=== PATIENT | female | born 1970 | race Caucasian/White ===

== ENCOUNTER 2022-01-23 09:57 | Day surgery (SDC) | payer BC ==
[2022-01-19 12:55] LABS: Absolute Lymphocytes (CBC) 2.6 K/uL (0.7-4.9); Hematocrit 37.2 % (36.0-45.0); Lymphocytes % 36.8 % (15.3-44.8); RBC Red Blood Cell Count 3.97 M/uL (3.86-4.86)
[2022-01-19 13:05] LABS: Potassium 3.4 mmol/L (3.5-5.1)
[2022-01-23] MEDS ORDERED: CEFAZOLIN SODIUM 1 GM/VIAL ONE (10:31)
[2022-01-23] MEDS ORDERED: NA CHLORIDE 0.9% 50 ML ONE (10:31)
[2022-01-23] MEDS ORDERED: Ringers Lactate 1,000 ML IV ONE (10:31)
[2022-01-23] MEDS ORDERED: MIDAZOLAM HCL 2 MG/2 ML INJ ONE ×3 (10:46→12:17)
[2022-01-23] MEDS ORDERED: FENTANYL CITR 100 MCG/2 ML ONE (10:46)
[2022-01-23] MEDS ORDERED: dexAMETHasone 10 MG/ML VIAL ONE (10:47)
[2022-01-23] MEDS ORDERED: BUPIVACAINE 0.25% PF 10 ML VIAL ONE (10:47)
[2022-01-23] MEDS ORDERED: BUPIVACAINE 0.5% PF 10 ML VIAL ONE ×2 (10:48→10:58)
[2022-01-23] MEDS ORDERED: ACETAMINOPHEN 500 MG TAB ONE (10:58)
[2022-01-23] MEDS ORDERED: CELECOXIB 100 MG CAPSULE ONE (10:58)
[2022-01-23] MEDS ORDERED: propofoL 200 MG/20 ML VIAL IV ONE (12:17)
[2022-01-23] MEDS ORDERED: LIDOCAINE 2% MPF 5 ML VIAL ONE (12:17)
[2022-01-23] MEDS ORDERED: NS 0.9% VIAL 10 ML ONE (13:12)
[2022-01-23] MEDS ORDERED: MORPHINE 10 MG/ML VIAL ONE (13:12)
[2022-01-23] MEDS: HYDROMORPHONE HCL 2 MG/ML inj ONE ×4 (14:23→14:41)
[2022-01-23] MEDS ORDERED: KETOROLAC 30 MG/ML INJ ONE (14:38)
[2022-01-23] MEDS ORDERED: HYDROMORPHONE HCL 1 MG/ML INJ ONE (14:53)
--- NOTE | 2022-01-23 15:15 | OP ---
Date of Procedure: 01/23/2022 Surgeon: Ha Erickson MD Preoperative Diagnosis: Left knee pain with instability as well as MRI demonstrated medial meniscal tear and ACL disruption. Postoperative Diagnoses: 1.Medial meniscal tear. 2.ACL disruption. Procedures: 1.Examination under anesthesia. 2.Medial meniscal debridement. 3.ACL reconstruction using Achilles tendon allograft. Estimated Blood Loss: 20 cc. Complications: There were no complications. Pathology Specimen: No pathology specimen sent. Indication For Operation: Ms. Griffin is a 51-year-old female, who arrived to see me in the office. She arrived with an MRI, which demonstrated an ACL tear as well as medial meniscal tear. 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 She does not have any d egenerative changes of her knee and is experiencing fairly frequent episodes of instability. She did not do well with physical therapy and at this time risks, benefits, and alternatives to different me thods of treating this have been discussed with her and we will proceed with the procedure. All risk s associated with that have been discussed and all of her questions have been answered. Description Of Procedure: The patient was taken to the operating room and placed in the supine posit ion. General anesthesia was obtained by staff, who previously had a block done in holding. A well-p added tourniquet was placed on superior left leg. Knee was brought through the range of motion. She has an obvious pivot shift with obvious instability. Left lower extremity was then prepped and drap ed in usual sterile fashion for this procedure. A standard superior medial arthroscopy portal was th en placed with aspiration of approximately 30 cc of rather normal-appearing synovial fluid. This was followed by placement of inferolateral arthroscopy portal. The knee was then sequentially examined including the suprapatellar pouch, the medial and lateral gutters, medial and lateral compartments as well as notch and patellofemoral joint. Pertinent findings included a tear of the medial meniscus. A standard medial arthroscopy portal was then performed and a combination of hand instruments and sh avers were then used to debride back this medial meniscal tearing to a firm, well contoured base. So me of the fat pad was removed in preparation for the ACL. There was some bleeding. Therefore, the t ourniquet was raised. The ACL was examined and was found to be incompetent and with some fibrous per sisting. These were debrided leaving a small stump of ACL to serve as a footprint. Fat pad was then removed to allow for good visualization and all soft tissue was removed in the region of the ACL fem oral footprint and intercondylar notch. Care being taken to protect the PCL. A very small notchplas ty was performed. After this, the arthroscopic aimer was used and an incision was established for pl acement of the guide pin. Guide pin was then placed in appropriate position and the tibia was then r eamed to a size, which matches the ACL graft. Following this, a guide was used and pin wa s placed with some significant degree of flexion exiting the femur in the appropriate position. Foll owing this, this was then reamed up to a size 30 depth with a size 9 reamer. After this, the graft w as then passed without difficulty into the femoral canal and held firmly in place at both ends. The medial portal was then used for placement of a size 8 x 30 screw. After this had been tapped, has a good bite, vigorous traction on the graft as well as moving the knee through range of motion does not demonstrate any change in isometry and appears to be very well fixed. This was followed by placemen t of the tibial screw, which also appears to have a very good bite. The prominent graft material was then removed at the surface of the bone and the skin was then closed using 2-[address] shaw on the arthroscopy portals and this incision. Knee was brought through a full range of motion and Syeda is a very solid. The knee was then placed in a very well-padded sterile dressing as well as a knee immobilizer and the patient was taken to the recovery room in good condition. There were no complica tions. SE/MODL Voice ID: [id number] Report ID: [id number]
[2022-01-23] MEDS ORDERED: HYDROCODONE/APAP 7.5/325 MG TAB ONE (15:41)
[2022-01-23 17:08] VITALS: BP 111/66; TEMP 97; O2SAT 94
== END 2022-01-23 16:07 | disposition home or self-care (01) ==
LOC: OR 09:57
PROVIDERS: ATTEND Orthopaedic Surgery
PROC: 0SBD4ZZ Excision of Left Knee Joint, Percutaneous Endoscopic Approach (ICD-10-PCS; 2022-01-23)
PROC: 0MRP4KZ Replacement of Left Knee Bursa and Ligament with Nonautologous Tissue Substitute, Percutaneous Endoscopic Approach (ICD-10-PCS; principal; 2022-01-23 12:00)
DX: S83.242A Other tear of medial meniscus, current injury, left knee, initial encounter (principal); S83.105A Unspecified dislocation of left knee, initial encounter
CPT/HCPCS: 85025; 80048; 36415; 29888; 29881; J2704; J2250 ×3; J1170 ×2; J3010; J1100; J7120; J0690